=== PATIENT | female | born 1945 | race Caucasian/White ===

== ENCOUNTER → 2019-04-28 | Outpatient (CLI) | payer MEDICARE ==
--- NOTE | 2019-04-28 11:12 | RAD ---
EXAM: Dual energy x-ray absorptiometry (DEXA). HISTORY: Postmenopausal female presents for osteoporosis screening. COMPARISON: None. TECHNIQUE: Dual energy x-ray absorptiometry of the lumbar spine and right hip was performed. Calculation of bone mineral density based on standard deviations above or below the expected young adult normal value (T-score) was completed. FINDINGS: The average bone mineral density in the 1st through 4th lumbar vertebrae is 1.236 g/cmxcm, corresponding with a T-score of 0.5. The average total bone mineral density in the right hip is 0.698 g/cmxcm, corresponding with a T-score of -2.1. IMPRESSION: 1. Osteopenia measured at the right hip. 2. Normal bone mineral density measured at the lumbar spine. Definitions established by the World Health Organization: 1. Normal: T-score is -1.0 or above. 2. Osteopenia: T-score is between -1.0 and -2.5 . 3. Osteoporosis: T-score is -2.5 or below. Electronically signed by: Nimisha Byrnes MD (04/28/2019 11:09 AM) [facility]
== END | disposition home or self-care (01) ==
LOC: DXRAD 09:34
PROVIDERS: ATTEND Specialist
DX: M85.88 Other specified disorders of bone density and structure, other site (principal); M17.0 Bilateral primary osteoarthritis of knee; Z78.0 Asymptomatic menopausal state
CPT/HCPCS: 77080

== ENCOUNTER → 2020-01-17 | Outpatient (CLI) | payer MEDICARE ==
--- NOTE | 2020-01-20 16:05 | RAD ---
DATE: 01/17/2020 11:10 AM EXAM: MAMMO MELISA SCREENING BILATERAL HISTORY: Screening COMPARISON: 12/21/2018, 03/30/2018 Bilateral CC and MLO views of the breasts were performed. Bilateral breast tomosynthesis was performed in CC and MLO projections. This study was interpreted with the benefit of Computerized Aided Detection (CAD). FINDINGS: Breast Density: HETERO The breast parenchyma Is heterogeneously dense, which could reduce sensitivity of mammography. Breast parenchyma level C No suspicious masses, microcalcifications or architectural distortion is present to suggest malignancy in either breast. The visualized axillae are unremarkable. IMPRESSION: No mammographic evidence of malignancy. BI-RADS CATEGORY: 1 NEGATIVE RECOMMENDED FOLLOW-UP: 12M 12 MONTH FOLLOW-UP Annual screening mammography is recommended, unless clinically indicated sooner based on symptoms or change in physical exam. PQRS compliance statement: Patient information was entered into a reminder system with a target due date for the next mammogram. Mammography is a sensitive method for finding small breast cancers, but it does not detect them all and is not a substitute for careful clinical examination. A negative mammogram does not negate a clinically suspicious finding and should not result in delay in biopsying a clinically suspicious abnormality. "Our facility is accredited by the [employer] Mammography Program."
== END | disposition home or self-care (01) ==
LOC: MAMMO 11:00
PROVIDERS: ATTEND Specialist
DX: Z12.31 Encounter for screening mammogram for malignant neoplasm of breast (principal)
CPT/HCPCS: 77063; 77067

== ENCOUNTER → 2020-02-21 | Outpatient (CLI) | payer MEDICARE ==
--- NOTE | 2020-02-21 16:33 | CARD ---
MR#: [id number] Date of Study: 02/21/2020 Ordering Physician: JUANA BLUNT, Referring Physician: JUANA BLUNT, Tech: Mis Olson [facility] APPROVED REPORT EXAM: Two-dimensional and M-mode echocardiogram with Doppler and color Doppler. Other Information Quality : Good INDICATION R/O Non-Rheumatic Aortic Stenosis 2D DIMENSIONS RVDd2.7 (2.9-3.5cm)Left Atrium(2D)3.3 (1.6-4.0cm) IVSd1.3 (0.7-1.1cm)Aortic Root(2D)2.8 (2.0-3.7cm) LVDd3.3 (3.9-5.9cm)PWd1.2 (0.7-1.1cm) LVDs2.4 (2.5-4.0cm)FS (%) 30.0 % SV22.9 mlLVEF(%)60.0 (>50%) Aortic Valve AoV Peak Bill.160.2cm/sAoV VTI32.7cm AO Peak GR.10.3mmHgAO Mean GR.6mmHg ALLISON (VTI)2.03pc9HW P 1/2 Xrqo460oc Mitral Valve MV E Rstlhrwn72.2cm/sMV DECEL [id number] MV A Htfftmhh290.5cm/sE/A Ratio0.6 Tricuspid Valve TR P. Cycopbrb769pa/sRAP DTWETUQQ1ssRy TR Peak Gr.51mpXpIWIQ08gjPd LEFT VENTRICLE The left ventricle is normal size. There is mild concentric left ventricular hypertrophy. The left ve ntricular systolic function is normal and the ejection fraction is within normal range. The Ejection Fraction is 55-60%. There is normal LV segmental wall motion. Transmitral Doppler flow pattern is Gra de I-abnormal relaxation pattern. RIGHT VENTRICLE The right ventricle is normal size. The right ventricular systolic function is normal. ATRIA The left atrium size is normal. The right atrium size is normal. The interatrial septum is intact wit h no evidence for an atrial septal defect or patent foramen ovale as noted on 2-D or Doppler imaging. AORTIC VALVE The aortic valve is mildly thickened and appears rheumatic but Doppler interrogation shows a normally functioning valve. Doppler and Color Flow revealed mild aortic regurgitation. There is no significan t aortic valvular stenosis. MITRAL VALVE The mitral valve is calcified but opens well. There is no evidence of mitral valve prolapse. There is no mitral valve stenosis. Doppler and Color Flow revealed no mitral valve regurgitation noted. TRICUSPID VALVE The tricuspid valve is normal in structure and function. Doppler and Color Flow revealed trace tricus pid regurgitation. The PA pressure was estimated at 16 mmHg. There is no tricuspid valve stenosis. PULMONIC VALVE The pulmonic valve is not well visualized. Doppler and Color Flow revealed trace pulmonic valvular re gurgitation. There is no pulmonic valvular stenosis. GREAT VESSELS The aortic root is normal in size. The ascending aorta is normal in size. The IVC is normal in size a nd collapses >50% with inspiration. PERICARDIAL EFFUSION There is no evidence of significant pericardial effusion. Critical Notification Critical Value: No <Conclusion> The left ventricle is normal size. The left ventricular systolic function is normal and the ejection fraction is within normal range. The Ejection Fraction is 55-60%. There is mild concentric left ventricular hypertrophy. The aortic valve is mildly thickened and appears rheumatic but Doppler interrogation shows a normally functioning valve. There is no significant aortic valvular stenosis. Doppler and Color Flow revealed mild aortic regurgitation. Doppler and Color Flow revealed no mitral valve regurgitation noted. Doppler and Color Flow revealed trace tricuspid regurgitation. The PA pressure was estimated at 16 mmHg. Signed by : Chente Thorne MD Electronically Approved : 02/21/2020 16:33:11
== END ==
LOC: ECHO 14:52
PROVIDERS: ATTEND Specialist
DX: I08.0 Rheumatic disorders of both mitral and aortic valves (principal); E78.00 Pure hypercholesterolemia, unspecified
CPT/HCPCS: 93306

== ENCOUNTER → 2021-01-17 | Outpatient (CLI) | payer MEDICARE ==
--- NOTE | 2021-01-17 17:48 | RAD ---
DATE: 01/17/2021 EXAM: DIGITAL SCREEN BILAT W/CAD HISTORY: Screening COMPARISON: Multiple prior exams dating back to 11/19/2015 This study was interpreted with the benefit of Computerized Aided Detection (CAD). Breast Density: HETERO The breast parenchyma is heterogenously dense, which could reduce sensitivity of mammography. Breast parenchyma level C. FINDINGS: No mass, suspicious calcification, or architectural distortion in either breast. IMPRESSION: No evidence of malignancy. BI-RADS CATEGORY: 1 NEGATIVE RECOMMENDED FOLLOW-UP: 12M 12 MONTH FOLLOW-UP PQRS compliance statement: Patient information was entered into a reminder system with a target due date for the next mammogram. Mammography is a sensitive method for finding small breast cancers, but it does not detect them all and is not a substitute for careful clinical examination. A negative mammogram does not negate a clinically suspicious finding and should not result in delay in biopsying a clinically suspicious abnormality. "Our facility is accredited by the [employer] Mammography Program."
== END ==
LOC: MAMMO 11:02
PROVIDERS: ATTEND Specialist
DX: Z12.31 Encounter for screening mammogram for malignant neoplasm of breast (principal)
CPT/HCPCS: 77067